=== PATIENT | female | born 1935 ===

== ENCOUNTER 2020-03-25 12:48 | Outpatient (REF) | payer MEDICARE, SELFPAY ==
[2020-03-25 13:38] LABS: Anion Gap 14 (12-20); Blood Urea Nitrogen 24 mg/dL (9-16); Calcium 8.6 mg/dL (8.4-10.2); Carbon Dioxide 31 mmol/L (22-29); Chloride 101 mmol/L (96-108); Estimated Glomerular Filt Rate 56; Glucose Random 258 mg/dL (60-115); Potassium 3.7 mmol/l (3.3-5.1); Sodium 142 mmol/L (135-145)
== END 2020-03-25 12:49 | disposition home or self-care (01) ==
LOC: HO.LNP 12:48
PROVIDERS: Visit Provider Internal Medicine
DX: I50.9 Heart failure, unspecified (principal)
CPT/HCPCS: 80048